=== PATIENT | female | born 1965 | race Caucasian/White ===

== ENCOUNTER 2024-10-08 09:14 | Day surgery (SDC) | payer SELFPAY ==
[~2024-10-08 09:14] MED LIST: Sodium Chloride 0.9% 10 ML Syringe FLUSH PRN; Sodium Chloride 0.9% 10 ML Syringe FLUSH SCH
[2024-10-08] MEDS: Lactated Ringers 1,000 ML IV SCH (09:15)
[2024-10-08] MEDS ORDERED: dexmedeTOMIDine HCl 200 MCG/2 ML SDV ONE (09:23)
[2024-10-08] MEDS ORDERED: propofoL 500 MG/50 ML 50 ML ONE (09:23)
[2024-10-08] MEDS ORDERED: Bupivacaine 0.5% 30 ML SDV ONE (09:58)
== END 2024-10-08 12:30 | disposition home or self-care (01) ==
LOC: JD.SDS 09:14
PROVIDERS: ATTEND Surgery
DX: K20.91 Esophagitis, unspecified with bleeding (principal); K64.9 Unspecified hemorrhoids; K80.20 Calculus of gallbladder without cholecystitis without obstruction; I10 Essential (primary) hypertension; E78.5 Hyperlipidemia, unspecified; F32.A Depression, unspecified; Z79.899 Other long term (current) drug therapy; Z91.040 Latex allergy status; Z88.0 Allergy status to penicillin; Z91.048 Other nonmedicinal substance allergy status
CPT/HCPCS: 43239; 45380; J0665; J2704; J7120; 00813